=== PATIENT | female | born 1995 | race African-American/Black ===

== ENCOUNTER 2016-08-21 23:33 | Emergency (ER) | payer MEDICAID ==
[~2016-08-21] VITALS: Ht 175.3 cm; Wt 79.0 kg
[~2016-08-21 23:33] MED LIST: METR500I3 PO
[2016-08-21 23:35] VITALS: BP 116/67; PULSE 84; RESP 16; TEMP 98.1; O2SAT 99
--- NOTE | 2016-08-21 23:57 | PD ---
HPI Chief Complaint: GI Complaint Time Seen by Provider: 23:40 Travel History International Travel<30 days: No Contact w/Intl Traveler<30days: No Traveled to known affect area: No History of Present Illness HPI 21-year-old here with complaint of nausea and vomiting. Patient states that her last menstrual period was at the end of April. Her menses are irregular at baseline. She does not believe she is but has not taken any home test. She is sexually active and does not use protection. She has had one day of nausea and vomiting 2. No abdominal pain, leakage of fluid or vaginal discharge, no abnormal vaginal bleeding. Associated diarrhea, fevers or chills. PFSH Past Medical History Medical History: Denies Significant Hx ?: Unknown Social History Tobacco Use: No Allergies-Medications (Allergen,Severity, Reaction): Coded Allergies: No Known Allergies (Unverified , 08/21/16) Reported Meds & Prescriptions Reported Meds & Active Scripts Active No Active Prescriptions or Reported Medications Review of Systems Except as stated in HPI: all other systems reviewed are Neg Physical Exam Narrative GENERAL: Well-appearing female in no acute distress SKIN: Focused skin assessment warm/dry. HEAD: Normocephalic. EYES: No scleral icterus. No injection or drainage. ENT: Mucous membranes pink and moist. NECK: Supple CARDIOVASCULAR: Regular rate and rhythm. RESPIRATORY: No accessory muscle use. GASTROINTESTINAL: Abdomen soft, non-tender, nondistended. MUSCULOSKELETAL: Normal gait NEUROLOGICAL: Awake and alert. Normal speech. PSYCHIATRIC: Appropriate mood and affect; insight and judgment normal. Data Data Last Documented VS Vital Signs Date Time Temp Pulse Resp B/P Pulse Ox O2 Delivery O2 Flow Rate FiO2 08/21/16 23:35 98.1 84 16 116/67 99 Orders Ed Urine Pregnancytest Poc (08/21/16 23:40) Ed Poc Ultrasound (08/21/16 23:47) [facility] Medical Decision Making Medical Screen Exam Complete: Yes Emergency Medical Condition: Yes Medical Record Reviewed: Yes Differential Diagnosis 21-year-old female here with complaint of nausea and vomiting times one day, LMP approximately 3 months ago. Differential is , gastritis, viral syndrome. No abdominal pain or vaginal bleeding to suggest ectopic. Narrative Course Urine test positive. Bedside ultrasound performed showing IUP, please see procedure note. I suspect that her nausea and vomiting is due to her and patient has abdominal examination is benign and will be reassured and were discharged home with outpatient [facility] follow-up. Procedures Procedure Narrative Emergency Department Pelvic ultrasound was performed with patient consent. The curvilinear probe was used in the transverse and sagittal views within the suprapubic region revealing an intrauterine . heart rate was 160s. See this measures 15 weeks 3 days by biparietal diameter Diagnosis Primary Impression: Intrauterine Additional Impression: Nausea and vomiting during prior to 22 weeks gestation Referrals: [facility] call for appointment [facility] call for appointment Additional Instructions: Follow-up with [facility] to establish care for this . Med/Other Pt SpecificInfo: No Change to Meds Scripts No Active Prescriptions or Reported Meds Disposition: 01 DISCHARGE HOME Condition: Stable Macrina Hanna MD Aug 21, 2016 23:57
== END 2016-08-22 00:27 | disposition home or self-care (01) ==
LOC: NEPE 23:33
DX: O21.9 Vomiting of pregnancy, unspecified (principal); Z3A.15 15 weeks gestation of pregnancy
CPT/HCPCS: 84703; 99283

== ENCOUNTER 2016-09-05 15:13 | Emergency (ER) | payer MEDICAID ==
--- NOTE | 2016-09-05 16:18 | PD ---
HPI Chief Complaint Right-sided pain Date Seen: Sep 05, 2016 Time Seen: 16:00 Travel History International Travel<30 Days: No Contact w/Intl Traveler<30Days: No Known Affected Area: No History of Present Illness HPI 21-year-old 3 para 2 at 17+ weeks gestation with an EDC of February 11 by last menstrual period of May 07. She presents with mild intermittent right flank pain that started last evening. She denies any history of similar events. She has no dysuria hematuria or frequency. Para: 2 : 3 Last Menstrual Period: May 07, 2016 History Past Medical History Medical History: Denies Significant Hx Obstetric History Obstetric History 2 prior term vaginal deliveries in [place]. The youngest is 7 months old. Past Surgical History Surgical History: No Previous Surgery Family History Family History: Negative Social History Alcohol Use: No Tobacco Use: No Substance Abuse: No Allergies-Medications (Allergen,Severity, Reaction): Coded Allergies: No Known Allergies (Unverified , 09/05/16) Home Meds No Active Prescriptions or Reported Meds Review of Systems Except as stated in HPI: all other systems reviewed are Neg Physical Exam Narrative GENERAL: Well-nourished, well-developed patient. SKIN: Warm and dry. HEAD: Normocephalic and atraumatic. EYES: No scleral icterus. No injection or drainage. ENT: No nasal drainage noted. Mucous membranes pink. Airway patent. NECK: Supple, trachea midline. No JVD. CARDIOVASCULAR: Regular rate and rhythm without murmurs, gallops, or rubs. RESPIRATORY: Breath sounds equal bilaterally. No accessory muscle use. ABDOMEN/GI: Abdomen soft, non-tender, bowel sounds present, no rebound, no guarding Gravid to [-] weeks size Fundal Height: [-U -3] heart tones 140 EXTREMITIES: No cyanosis or edema. BACK: Nontender without obvious deformity. No CVA tenderness. NEUROLOGICAL: Awake and alert. Motor and sensory grossly within normal limits. Five out of 5 muscle strength in all muscle groups. Normal speech. Data Data Orders Vital Signs (Adult) .ON ADMISSION (09/05/16 15:59) ^ Labor Status (09/05/16 15:59) Urinalysis - C+S If Indicated (09/05/16 15:59) Rubella Immune Status (09/05/16 15:59) Hepatitis Profile (09/05/16 15:59) Rapid Plasma Regin (Rpr) W Ttr (09/05/16 15:59) Type And Screen (09/05/16 15:59) Complete Blood Count With Diff (09/05/16 15:59) Special Serology (09/05/16 15:59) MDM Medical Record Reviewed: Yes Narrative Course / MDM Assessment: 17+ week intrauterine with mild intermittent right flank pain Plan: Urinalysis is positive for blood and LCE and culture is indicated. Empiric treatment with Bactrim DS No. 10 to take 1 by mouth twice a day for 5 days was initiated. labs Outpatient ultrasound at [facility] Diagnosis Diagnosis: Primary Impression: 17 weeks gestation of Additional Impression: Flank pain Disposition: 01 DISCHARGE HOME Condition: Good Scripts No Active Prescriptions or Reported Meds Hakan Frausto MD Sep 05, 2016 16:18
[2016-09-05 16:47] LABS: AUTOMATED NEUTROPHIL # 8.1 TH/MM3 (1.8-7.7); BASOPHIL % 0.2 % (0.0-2.0); EOSINOPHIL % 0.3 % (0.0-4.0); HEMATOCRIT 33.2 % (35.0-46.0); HEMO FLAGS DIFF FINAL; LYMPH % 15.1 % (9.0-44.0); LYMPHOCYTE # 1.6 TH/MM3 (1.0-4.8); MEAN CELL VOLUME 78.4 FL (80.0-100.0); MEAN CORPUSCULAR HEMOGLOBIN 25.8 PG (27.0-34.0); MEAN CORPUSCULAR HGB CONC 32.9 % (32.0-36.0); MONO % 7.3 % (0.0-8.0); NEUT % 77.1 % (16.0-70.0); PLATELET COUNT 230 TH/MM3 (150-450); RED BLOOD COUNT 4.23 MIL/MM3 (4.00-5.30); RED CELL DISTRIBUTION WIDTH 15.3 % (11.6-17.2); WHITE BLOOD COUNT 10.5 TH/MM3 (4.0-11.0)
[2016-09-05 17:01] LABS: BLOOD, URINE MOD (NEG); COMMENT (UR) CULTURE INDICATED; CULTURE IF INDICATED CULTURE INDICATED; GLUCOSE,URINE NEG (NEG); KETONE, URINE 10 mg/dL (NEG); MUCUS URINE FEW /lpf (OCC); NITRITE,URINE NEG (NEG); SQUAMOUS EPITHELIAL CELL URINE 7 /hpf (0-5); URINE COLOR YELLOW (YELLW/STRAW)
[2016-09-05 17:23] VITALS: BP 83/49; PULSE 85
[2016-09-05 17:24] VITALS: BP 111/57; PULSE 94; RESP 18
[2016-09-05 18:18] LABS: RUBELLA IGG ANTIBODY 33.6 IU/mL (10.0-500.0); RUBELLA STATUS IMMUNE (IMMUNE)
[2016-09-06 15:11] LABS: RAPID PLASMA REAGIN SCREEN NON-REACTIVE (NON-REACTVE)
== END 2016-09-05 17:27 | disposition home or self-care (01) ==
LOC: HOBED 15:13
DX: O26.892 Other specified pregnancy related conditions, second trimester (principal); R10.9 Unspecified abdominal pain
CPT/HCPCS: 80074; 81001; 85025; 86592; 86703; 86762; 86850; 86900; 86901; 87086; 99284

== ENCOUNTER 2017-08-29 10:14 | Emergency (ER) | payer MEDICAID ==
[~2017-08-29] VITALS: Ht 175.3 cm; Wt 80.0 kg
[2017-08-29 10:30] VITALS: BP 110/63; PULSE 71; RESP 16; TEMP 98.5; O2SAT 100
[2017-08-29] MEDS ORDERED: KETOROLAC TROMETHAMINE 60 MG/2 ML (IM) VIAL IM ONE (11:30)
--- NOTE | 2017-08-29 11:34 | PD ---
HPI Chief Complaint: Salon Manager Problem/Complaint Time Seen by Provider: 11:19 Travel History International Travel<30 days: No Contact w/Intl Traveler<30days: No Traveled to known affect area: No History of Present Illness HPI Patient is a 22-year-old female presenting to [facility] department for evaluation of heavy menstrual bleeding. Patient states her cycle started 2 days ago, she reports heavy bleeding and abdominal cramping since the onset. She states that normally her cycles are not this heavy. She reports normal monthly cycles, she had a cycle last month. She denies any chance of . She denies any nausea or vomiting, she has no copy supervisor to follow-up with. She has no other complaints at this time. [facility] Past Medical History Anemia: Yes ?: Not : 2 Para: 2 Social History Alcohol Use: No Tobacco Use: No Substance Use: No Allergies-Medications (Allergen,Severity, Reaction): Coded Allergies: No Known Allergies (Verified Adverse Reaction, Unknown, 08/29/17) Reported Meds & Prescriptions Reported Meds & Active Scripts Active Ibuprofen 800 Mg Tab 800 Mg PO Q6HR PRN Review of Systems Except as stated in HPI: all other systems reviewed are Neg Genitourinary: Positive: Pelvic Pain (Cramping), Vaginal Bleeding Physical Exam Narrative GENERAL: Well-developed, well-nourished, alert female. Presenting in no acute distress. SKIN: Warm and dry. HEAD: Atraumatic. Normocephalic. EYES: Pupils equal and round. No scleral icterus. No injection or drainage. ENT: No nasal bleeding or discharge. Mucous membranes pink and moist. NECK: Trachea midline. No JVD. CARDIOVASCULAR: Regular rate and rhythm. RESPIRATORY: No accessory muscle use. Clear to auscultation. Breath sounds equal bilaterally. GASTROINTESTINAL: Abdomen soft, mildly tender in suprapubic region, nondistended. Hepatic and splenic margins not palpable. No rebound, no guarding , positive bowel sounds. MUSCULOSKELETAL: Extremities without clubbing, cyanosis, or edema. No obvious deformities. NEUROLOGICAL: Awake and alert. No obvious cranial nerve deficits. Motor grossly within normal limits. Five out of 5 muscle strength in the arms and legs. Normal speech. PSYCHIATRIC: Appropriate mood and affect; insight and judgment normal. Data Data Last Documented VS Vital Signs Date Time Temp Pulse Resp B/P (MAP) Pulse Ox O2 Delivery O2 Flow Rate FiO2 08/29/17 10:30 98.5 71 16 110/63 (79) 100 Orders Orders Ed Urine Pregnancytest Poc (08/29/17 11:24) Ketorolac Inj (Toradol Inj) (08/29/17 11:30) Ed Discharge Order (08/29/17 12:45) MDM Medical Decision Making Medical Screen Exam Complete: Yes Emergency Medical Condition: Yes Interpretation(s) Vital Signs Date Time Temp Pulse Resp B/P (MAP) Pulse Ox O2 Delivery O2 Flow Rate FiO2 08/29/17 10:30 98.5 71 16 110/63 (79) 100 Differential Diagnosis Normal menstrual cycle versus dysfunctional uterine bleeding versus miscarriage versus other Narrative Course Patient is a 22-year-old female that presented to emerge from for evaluation of a heavy menstrual period. Urine is negative. Patient was given Toradol for pain. Her vital signs are stable. Patient was reassessed, she reports improvement in cramping. She was encouraged to follow-up with a copy supervisor if symptoms persisted. She can also return to emergency department for reevaluation. Diagnosis Primary Impression: Heavy menstrual period Qualified Codes: N92.0 - Excessive and frequent menstruation with regular cycle Referrals: [facility] 1 week Patient Instructions: General Instructions, Menorrhagia (ED) Departure Forms: Tests/Procedures, Work Release Enter return to work date: Aug 30, 2017 Additional Instructions: Follow-up with a copy supervisor Take medications as needed for cramping Return to emergency department for any new or worsening symptoms Med/Other Pt SpecificInfo: Prescription(s) given Scripts Ibuprofen (Ibuprofen) 800 Mg Tab 800 MG PO Q6HR Y for PAIN, #40 TAB 0 Refills Prov: Sherrie Hope 08/29/17 Disposition: 01 DISCHARGE HOME Condition: Stable Sherrie Hope Aug 29, 2017 11:34
[2017-08-29] MEDS ORDERED: IBUP1TAB7 PO (12:45)
== END 2017-08-29 12:52 | disposition home or self-care (01) ==
LOC: NEPD 10:14
DX: N92.0 Excessive and frequent menstruation with regular cycle (principal)
CPT/HCPCS: 84703; 96372; 99283; J1885